=== PATIENT | male | born 1970 | race Caucasian/White ===

== ENCOUNTER 2019-11-21 03:37 | Inpatient (IN) | payer OTHER ==
[2019-11-21] MEDS ORDERED: Albuterol/Ipratropium 3.0-0.5 MG/3 ML Neb Soln NEB ONE (03:39)
--- NOTE | 2019-11-21 03:48 | EDM.PDOC ---
ED HPI GENERAL MEDICAL PROBLEM - General Chief Complaint: Respiratory Problem Stated Complaint: TROUBLE BREATHING Time Seen by Provider: 11/21/19 03:40 Source of Information: Reports: Patient - History of Present Illness INITIAL COMMENTS - FREE TEXT/NARRATIVE: The patient is a 49-year-old male smoker with a reported history of pneumonia and "something with his kidneys" who presents to the ER for shortness of breath. He is an extremely poor historian and only states he has been coughing and cannot breathe again cannot say much beyond that. Chest Pain Score (Numeric/FACES): 8 - Related Data Allergies Allergy/AdvReac Type Severity Reaction Status Date / Time No Known Allergies Allergy Verified 11/21/19 05:07 Home Meds: Home Meds . [No Known Home Meds] 11/21/19 [History] ED ROS GENERAL - Review of Systems Review Of Systems: See Below Reason Not Obtained: Very poor historian ED EXAM, GENERAL - Physical Exam Exam: See Below Free Text/Narrative:: Constitutional: Febrile, hypoxic, diaphoretic, ill-appearing in moderate respiratory distress, jaundiced appearance to the skin HEENT.: Normocephalic, Atraumatic, PERRL, EOMI, conjunctive a have a small amount of yellowing bilaterally, external ears are atraumatic, nares are patent without epistaxis Neck: Normal range of motion, Trachea Midline, No stridor Respiratory.: Moderate respiratory distress with some tachypnea, very poor aeration on the left with some crackles, no wheezes noted, decreased breath sounds but significantly improved in the right side Cardiovascular.: Tachycardic rate and Rhythm without murmurs, rubs, or gallops, good peripheral perfusion GI: Abdomen soft and non tender, no masses, no rebound, rigidity, or guarding Genital Urinary: Deferred Musculoskeletal: Good range of motion. All 4 extremities present and atraumatic , no edema Back: Full Range of Motion Skin: Warm, Dry, Color is jaundiced and diaphoretic, No acute rash. Lymphatic: No lymphadenopathy noted Neurological: Alert, Awake and oriented x 3, No focal deficits noted appreciate , GCS 15 Psych: Affect, Judgement, mood normal Course - Vital Signs Text/Narrative:: Clinically the patient appears to be a pneumonia. A stat portable chest x-ray was ordered and reviewed by me and it is consistent with a left lower lobe pneumonia. No pneumothorax, no thoracic masses or any other acute pathology noted. IV access was obtained in standard pneumonia pathway was instituted but given the patient's profound hypoxia and presentation he will need to be admitted to the hospital. He is responding to oxygen via nasal cannula and he will be given Levaquin 750 mg orally and cefepime 2 g IV. I contacted Dr. Gardiner, and she graciously accepts the patient for observation , reevaluation and treatment as appropriate. Critical care time less than 30 minutes. Last Recorded V/S: Last Vital Signs Temp 36 C L 11/21/19 21:00 Pulse 67 11/21/19 21:00 Resp 18 11/21/19 21:00 BP 112/71 11/21/19 21:00 Pulse Ox 99 11/21/19 21:00 - Orders/Labs/Meds Orders: Active Orders 24 hr Category Date Time Status Activity as Tolerated [RC] .Routine Care 11/21/19 05:12 Active Oxygen Therapy Adult [Oxygen Therapy] [RC] ASDIRECTED Care 11/21/19 05:24 Active RT Aerosol Therapy [RC] ASDIRECTED Care 11/21/19 03:39 Active Vital Signs [RC] Q4H Care 11/21/19 08:00 Active Regular Diet [DIET] Diet 11/21/19 Breakfast Active CULTURE BLOOD [BC] Stat Lab 11/21/19 04:00 Results CULTURE BLOOD [BC] Stat Lab 11/21/19 04:15 Results Cefepime [Maxipime in D5W 2 GM/50 ML] 2 gm Med 11/21/19 13:00 Active Premix Bag 1 bag IV Q8H Lactated Ringers [Ringers, Lactated] 1,000 ml Med 11/21/19 05:15 Active IV ASDIRECTED Levofloxacin/Dextrose 5%-Water [Levaquin in D5W 750 MG/ Med 11/22/19 04:00 Active 150 ML] 750 mg Premix Bag 1 bag IV Q24H Blood Culture x2 Reflex Set [OM.PC] Stat Oth 11/21/19 03:53 Ordered Medication Orders Acetaminophen (Tylenol) 650 mg PO Q4H PRN PRN Reason: Pain (Mild 1-3)/fever Albuterol/Ipratropium (Duoneb 3.0-0.5 Mg/3 Ml) 3 ml NEB Q4HRRT PRN PRN Reason: sob/wheezing Docusate Sodium (Colace) 100 mg PO BID PRN PRN Reason: Constipation Heparin Sodium (Porcine) (Heparin Sodium) 5,000 units SUBCUT Q8H [facility] Last Admin: 11/21/19 20:20 Dose: 5,000 units Admin: 11/21/19 13:37 Dose: 5,000 units Lactated Ringer's (Ringers, Lactated) 1,000 mls @ 125 mls/hr IV ASDIRECTED [facility] Last Admin: 11/21/19 17:34 Dose: 125 mls/hr Infusion: 11/21/19 15:42 Dose: 125 mls/hr Admin: 11/21/19 07:42 Dose: 125 mls/hr Cefepime HCl 2 gm/ Premix 50 mls @ 100 mls/hr IV Q8H [facility] Last Admin: 11/21/19 20:24 Dose: 100 mls/hr Infusion: 11/21/19 13:11 Dose: 100 mls/hr Admin: 11/21/19 12:41 Dose: 100 mls/hr Levofloxacin/Dextrose 750 mg/ (Premix) 150 mls @ 100 mls/hr IV Q24H [facility] Ketorolac Tromethamine (Toradol) 15 mg IVPUSH Q6H PRN PRN Reason: Pain Stop: 11/26/19 12:57 Last Admin: 11/21/19 13:37 Dose: 15 mg Magnesium Hydroxide (Milk Of Magnesia) 30 ml PO Q12H PRN PRN Reason: Constipation Ondansetron HCl (Zofran) 4 mg IVPUSH Q4H PRN PRN Reason: Nausea Sodium Phosphate (Neutra-Phos) 250 mg PO QID [facility] Last Admin: 11/21/19 17:34 Dose: 250 mg Admin: 11/21/19 12:42 Dose: 250 mg Labs: Laboratory Tests 11/21/19 11/21/19 11/21/19 Range/Units 04:00 04:00 04:00 WBC 30.17 H (4.0-11.0) K/uL RBC 4.16 L (4.50-5.90) M/uL Hgb 11.9 L (13.0-17.0) g/dL Hct 36.0 L (38.0-50.0) % MCV 86.5 (80.0-98.0) fL MCH 28.6 (27.0-32.0) pg MCHC 33.1 (31.0-37.0) g/dL RDW Std Deviation 45.2 (28.0-62.0) fl RDW Coeff of Carson 14 (11.0-15.0) % Plt Count 292 (150-400) K/uL MPV 11.20 (7.40-12.00) fL Add Manual Diff YES Neutrophils % (Manual) 88 H (48.0-80.0) % Band Neutrophils % 4 % Lymphocytes % (Manual) 1 L (16.0-40.0) % Monocytes % (Manual) 6 (0.0-15.0) % Metamyelocytes % 1 % Nucleated RBC % 0.0 /100WBC Absolute Seg Neuts 26.5 H (1.4-5.7) Band Neutrophils # 1.2 Lymphocytes # (Manual) 0.3 L (0.6-2.4) Monocytes # (Manual) 1.8 H (0.0-0.8) Absolute Metamyelocyte 0.3 Nucleated RBCs # 0 K/uL Lactate 2.5 H* (0.20-2.00) mmol/L Sodium 132 L (136-148) mmol/L Potassium 3.5 (3.5-5.1) mmol/L Chloride 95 L (98-107) mmol/L Carbon Dioxide 26.5 (21.0-32.0) mmol/L BUN 16 (7.0-18.0) mg/dL Creatinine 1.1 (0.8-1.3) mg/dL Est Cr Clr Drug Dosing TNP Estimated GFR (MDRD) > 60.0 ml/min Glucose 132 H (74-106) mg/dL Hemoglobin A1c (4.5-6.2) % Calcium 8.5 (8.5-10.1) mg/dL Phosphorus (2.6-4.7) mg/dL Magnesium (1.8-2.4) mg/dL Total Bilirubin 4.5 H (0.2-1.0) mg/dL AST 65 H (15-37) IU/L ALT 27 (14-63) IU/L Alkaline Phosphatase 127 H (46-116) U/L Creatine Kinase (26-308) U/L Total Protein 8.0 (6.4-8.2) g/dL Albumin 2.1 L (3.4-5.0) g/dL Globulin 5.9 H (2.6-4.0) g/dL Albumin/Globulin Ratio 0.4 L (0.9-1.6) TSH 3rd Generation (0.36-3.74) uIU/mL 11/21/19 11/21/19 11/21/19 Range/Units 04:00 04:00 04:00 WBC (4.0-11.0) K/uL RBC (4.50-5.90) M/uL Hgb (13.0-17.0) g/dL Hct (38.0-50.0) % MCV (80.0-98.0) fL MCH (27.0-32.0) pg MCHC (31.0-37.0) g/dL RDW Std Deviation (28.0-62.0) fl RDW Coeff of Carson (11.0-15.0) % Plt Count (150-400) K/uL MPV (7.40-12.00) fL Add Manual Diff Neutrophils % (Manual) (48.0-80.0) % Band Neutrophils % % Lymphocytes % (Manual) (16.0-40.0) % Monocytes % (Manual) (0.0-15.0) % Metamyelocytes % % Nucleated RBC % /100WBC Absolute Seg Neuts (1.4-5.7) Band Neutrophils # Lymphocytes # (Manual) (0.6-2.4) Monocytes # (Manual) (0.0-0.8) Absolute Metamyelocyte Nucleated RBCs # K/uL Lactate (0.20-2.00) mmol/L Sodium (136-148) mmol/L Potassium (3.5-5.1) mmol/L Chloride (98-107) mmol/L Carbon Dioxide (21.0-32.0) mmol/L BUN (7.0-18.0) mg/dL Creatinine (0.8-1.3) mg/dL Est Cr Clr Drug Dosing Estimated GFR (MDRD) ml/min Glucose (74-106) mg/dL Hemoglobin A1c 5.9 (4.5-6.2) % Calcium (8.5-10.1) mg/dL Phosphorus 2.4 L (2.6-4.7) mg/dL Magnesium 1.3 L (1.8-2.4) mg/dL Total Bilirubin (0.2-1.0) mg/dL AST (15-37) IU/L ALT (14-63) IU/L Alkaline Phosphatase (46-116) U/L Creatine Kinase (26-308) U/L Total Protein (6.4-8.2) g/dL Albumin (3.4-5.0) g/dL Globulin (2.6-4.0) g/dL Albumin/Globulin Ratio (0.9-1.6) TSH 3rd Generation 0.58 (0.36-3.74) uIU/mL 11/21/19 11/21/19 Range/Units 04:00 06:55 WBC (4.0-11.0) K/uL RBC (4.50-5.90) M/uL Hgb (13.0-17.0) g/dL Hct (38.0-50.0) % MCV (80.0-98.0) fL MCH (27.0-32.0) pg MCHC (31.0-37.0) g/dL RDW Std Deviation (28.0-62.0) fl RDW Coeff of Carson (11.0-15.0) % Plt Count (150-400) K/uL MPV (7.40-12.00) fL Add Manual Diff Neutrophils % (Manual) (48.0-80.0) % Band Neutrophils % % Lymphocytes % (Manual) (16.0-40.0) % Monocytes % (Manual) (0.0-15.0) % Metamyelocytes % % Nucleated RBC % /100WBC Absolute Seg Neuts (1.4-5.7) Band Neutrophils # Lymphocytes # (Manual) (0.6-2.4) Monocytes # (Manual) (0.0-0.8) Absolute Metamyelocyte Nucleated RBCs # K/uL Lactate 1.6 (0.20-2.00) mmol/L Sodium (136-148) mmol/L Potassium (3.5-5.1) mmol/L Chloride (98-107) mmol/L Carbon Dioxide (21.0-32.0) mmol/L BUN (7.0-18.0) mg/dL Creatinine (0.8-1.3) mg/dL Est Cr Clr Drug Dosing Estimated GFR (MDRD) ml/min Glucose (74-106) mg/dL Hemoglobin A1c (4.5-6.2) % Calcium (8.5-10.1) mg/dL Phosphorus (2.6-4.7) mg/dL Magnesium (1.8-2.4) mg/dL Total Bilirubin (0.2-1.0) mg/dL AST (15-37) IU/L ALT (14-63) IU/L Alkaline Phosphatase (46-116) U/L Creatine Kinase 310 H (26-308) U/L Total Protein (6.4-8.2) g/dL Albumin (3.4-5.0) g/dL Globulin (2.6-4.0) g/dL Albumin/Globulin Ratio (0.9-1.6) TSH 3rd Generation (0.36-3.74) uIU/mL Meds: Medications Generic Name Dose Route Start Last Admin Trade Name Freq PRN Reason Stop Dose Admin Acetaminophen 650 mg 11/21/19 08:11 Tylenol PO Q4H PRN Pain (Mild 1-3)/fever Albuterol/Ipratropium 3 ml 11/21/19 10:48 Duoneb 3.0-0.5 Mg/3 Ml NEB Q4HRRT PRN sob/wheezing Docusate Sodium 100 mg 11/21/19 08:11 Colace PO BID PRN Constipation Heparin Sodium (Porcine) 5,000 units 11/21/19 13:00 11/21/19 20:20 Heparin Sodium SUBCUT 5,000 units Q8H ANA MARÍA Administration Lactated Ringer's 1,000 mls @ 125 mls/hr 11/21/19 05:15 11/21/19 17:34 Ringers, Lactated IV 125 mls/hr ASDIRECTED ANA MARÍA Administration Cefepime HCl 2 gm/ Premix 50 mls @ 100 mls/hr 11/21/19 13:00 11/21/19 20:24 IV 100 mls/hr Q8H ANA MARÍA Administration Levofloxacin/Dextrose 750 mg/ 150 mls @ 100 mls/hr 11/22/19 04:00 Premix IV Q24H [facility] Ketorolac Tromethamine 15 mg 03/09/20 12:57 11/21/19 13:37 Toradol IVPUSH 11/26/19 12:57 15 mg Q6H PRN Administration Pain Magnesium Hydroxide 30 ml 11/21/19 08:11 Milk Of Magnesia PO Q12H PRN Constipation Ondansetron HCl 4 mg 11/21/19 08:11 Zofran IVPUSH Q4H PRN Nausea Sodium Phosphate 250 mg 11/21/19 12:00 11/21/19 17:34 Neutra-Phos PO 250 mg QID ANA MARÍA Administration Discontinued Medications Generic Name Dose Route Start Last Admin Trade Name Freq PRN Reason Stop Dose Admin Albuterol/Ipratropium 3 ml 11/21/19 03:39 11/21/19 04:34 Duoneb 3.0-0.5 Mg/3 Ml NEB 11/21/19 03:40 3 ml ONETIME ONE Administration Cefepime HCl 2 gm/ Premix 50 mls @ 100 mls/hr 11/21/19 04:20 11/21/19 04:34 IV 11/21/19 04:49 100 mls/hr ONETIME ONE Administration Sodium Chloride 1,000 mls @ 999 mls/hr 11/21/19 04:27 11/21/19 04:34 Normal Saline IV 11/21/19 05:27 999 mls/hr .Bolus ONE Administration Sodium Chloride 1,000 mls @ 999 mls/hr 11/21/19 05:05 11/21/19 05:23 Normal Saline IV 11/21/19 06:05 999 mls/hr .Bolus ONE Administration Sodium Chloride 1,000 mls @ 999 mls/hr 11/21/19 06:10 11/21/19 06:31 Normal Saline IV 11/21/19 07:10 999 mls/hr .Bolus ONE Administration Magnesium Sulfate 4 gm/ Premix 100 mls @ 50 mls/hr 11/21/19 08:25 11/21/19 08 :36 IV 11/21/19 10:24 50 mls/hr ONETIME ONE Administration Iopamidol 50 ml 11/21/19 11:44 11/21/19 11:44 Isovue Multipack-370 (76%) IVPUSH 11/21/19 11:45 50 ml ONETIME ONE Administration Levofloxacin 750 mg 11/21/19 04:20 11/21/19 04:34 Levaquin PO 11/21/19 04:21 750 mg ONETIME ONE Administration Morphine Sulfate 2 mg 11/21/19 09:40 11/21/19 09:51 Morphine IVPUSH 11/21/19 09:41 2 mg ONETIME ONE Administration Potassium Chloride 40 meq 11/21/19 12:52 11/21/19 13:36 Klor-Con M20 PO 11/21/19 12:53 40 meq ONETIME ONE Administration Departure - Departure Time of Disposition: 22:00 Disposition: Refer to Observation Condition: Fair Clinical Impression: CAP (community acquired pneumonia) - Discharge Information *PRESCRIPTION DRUG MONITORING PROGRAM REVIEWED*: Not Applicable *COPY OF PRESCRIPTION DRUG MONITORING REPORT IN PATIENT SHANNEN: Not Applicable Sepsis Event Note - Evaluation Sepsis Screening Result: Possible Sepsis Risk - Focused Exam Date Exam was Performed: 11/21/19 Time Exam was Performed: 22:50 - My Orders Last 24 Hours: My Active Orders 11/21/19 03:39 RT Aerosol Therapy [RC] ASDIRECTED 11/21/19 03:53 Blood Culture x2 Reflex Set [OM.PC] Stat 11/21/19 04:00 CULTURE BLOOD [BC] Stat 11/21/19 04:15 CULTURE BLOOD [BC] Stat - Assessment/Plan Last 24 Hours: My Active Orders 11/21/19 03:39 RT Aerosol Therapy [RC] ASDIRECTED 11/21/19 03:53 Blood Culture x2 Reflex Set [OM.PC] Stat 11/21/19 04:00 CULTURE BLOOD [BC] Stat 11/21/19 04:15 CULTURE BLOOD [BC] Stat
[2019-11-21] MEDS ORDERED: Cefepime 2 GM in Premix Bag 1 BAG IV ONE (04:20)
[2019-11-21] MEDS ORDERED: Levofloxacin 250 MG Tab PO ONE (04:20)
[2019-11-21] MEDS ORDERED: Sodium Chloride 0.9% 1,000 ML IV ONE ×3 (04:27→06:10)
--- NOTE | 2019-11-21 04:32 | CR ---
Indication: Shortness of breath Technique: Chest 1 view Comparison: None Findings/Impression: Normal cardiac size. Patchy opacity in the mid to lower left lung field likely represents infection. No pneumothorax or significant effusion. No acute osseous abnormality. Recommend follow-up chest radiograph to assure complete resolution of findings. Dictated by Amanda Rocha MD @ Nov 21 2019 4:29AM Signed by Dr. Amanda Rocha @ Nov 21 2019 4:30AM
[2019-11-21 04:43] LABS: BLOOD UREA NITROGEN,BUN 16 mg/dL (7.0-18.0); CARBON DIOXIDE,CO2 26.5 mmol/L (21.0-32.0); CHLORIDE,CL 95 mmol/L (98-107); GLUCOSE RANDOM 132 mg/dL (74-106); POTASSIUM,K 3.5 mmol/L (3.5-5.1); SODIUM,NA 132 mmol/L (136-148)
[2019-11-21 05:41] LABS: HEMOGLOBIN A1C 5.9 % (4.5-6.2)
[2019-11-21] MEDS: Lactated Ringers 1,000 ML IV SCH ×2 (07:42→17:34)
[2019-11-21] MEDS ORDERED: Docusate Sodium 100 MG Cap PO PRN (08:11)
[2019-11-21] MEDS ORDERED: Ondansetron 4 MG/2 ML SDV IVPUSH PRN (08:11)
[2019-11-21] MEDS ORDERED: Magnesium Hydroxide 400 MG/5 ML Susp 30 ML Cup PO PRN (08:11)
[2019-11-21] MEDS ORDERED: Acetaminophen 325 MG Tab PO PRN (08:11)
--- NOTE | 2019-11-21 08:11 | PCM.HP.2 ---
H&P History of Present Illness - General Date of Service: 11/21/19 Admit Problem/Dx: Admission Diagnosis/Problem Admission Diagnosis/Problem Respiratory failure with hypoxia Source of Information: Patient History Limitations: Reports: No Limitations - History of Present Illness Initial Comments - Free Text/Narative: This 49 year old male with pmh of recent PR per patient, Hep C, tobacco abuse, venous insufficiency PE and recurrent PNA presented to the ED early this morning with complaints of shortness of breath and overall not feeling well. he reports over 1 week ago he started feeling ill, with a productive cough, fevers , shortness of breath and generalized malaise. He reports he felt like it was just a viral illness so he waited to come in. He reports the over whelming weakness and shortness of breath brought him in. He reports brown, green and bloody sputum intermittently. Denies neck pain, sinus pressure or ear pain. No sore throat. No chest pain or palpitations. No abdominal pain, no diarrhea or constipation or black or bloody BMs. He denies urinary concerns and no focal neurological deficits. He reports 1 ppd smoking, no alcohol use and no current recreational drug use, but hx of IV drug use in the past. In the ED significant leukocytosis noted at 30,170, platelet 292. Lactic acid 2.5. Na 132, Cl 95, glucose 132, phos 2.4 Magnesium 1.3, Bilirubin 4.5 AST 65, ALT 27, alk phos 127. TSH 0.58. He wsa given 1 L NS and along with Cefepime and Levaquin. Lactic acid imrpved after fluid resuscitation. CXR showed LM to LL lobe opacity representing pneumonia. He was noted to be hypoxic on arrival to ED , sating mid 90s on 6 L NC. He will be admitted inpatient for acute hypoxic respiratory failure and severe community acquired pneumonia. Chest Pain Score (Numeric/FACES): 8 - Related Data Allergies/Adverse Reactions: Allergies Allergy/AdvReac Type Severity Reaction Status Date / Time No Known Allergies Allergy Verified 11/21/19 05:07 Home Medications: Home Meds . [No Known Home Meds] 11/21/19 [History] Past Medical History Cardiovascular History: Reports: Blood Clots/VTE/DVT, PR (recently he states in [place]. Denies current medications.), Other (See Below) (venous insufficiency). Denies: Afib, High Cholesterol, Hypertension, Stents Respiratory History: Reports: Pneumonia, Recurrent. Denies: Asthma, COPD Other Genitourinary History: unknown kidney disease Musculoskeletal History: Denies: Arthritis, Fracture Neurological History: Reports: None. Denies: CVA, TIA Psychiatric History: Reports: None Endocrine/Metabolic History: Reports: None. Denies: Diabetes, Type II, Obesity/ BMI 30+ - Infectious Disease History Infectious Disease History: Reports: Chicken Pox, Hepatitis C (reports not fully treated) - Past Surgical History Musculoskeletal Surgical History: Reports: Other (See Below) Other Musculoskeletal Surgeries/Procedures:: hand tendon surgery Social & Family History - Family History Cardiac: Reports: Blood Clots/VTE/DVT - Tobacco Use Smoking Status *Q: Current Every Day Smoker Years of Tobacco use: 40 Packs/Tins Daily: 1 - Caffeine Use Caffeine Use: Reports: Soda - Alcohol Use Alcohol Use History: No - Recreational Drug Use Recreational Drug Use: Yes Drug Use in Last 12 Months: Yes Recreational Drug Type: Reports: Heroin Recreational Drug Last Use: Pt stated he used heroin smoke before H&P Review of Systems - Review of Systems: Review Of Systems: See Below General: Reports: Fever, Chills, Malaise, Weakness, Fatigue, Decreased Appetite HEENT: Reports: Headaches. Denies: Sinus Congestion, Sore Throat, Visual Changes Pulmonary: Reports: Shortness of Breath, Cough, Sputum, Hemoptysis Cardiovascular: Reports: Dyspnea on Exertion. Denies: Chest Pain, Palpitations , Edema, Lightheadedness Gastrointestinal: Reports: Decreased Appetite. Denies: Abdominal Pain, Black Stool, Bloody Stool, Hematemesis, Nausea, Vomiting Genitourinary: Reports: No Symptoms. Denies: Dysuria, Frequency, Burning Musculoskeletal: Reports: Muscle Pain (all over). Denies: Neck Pain Psychiatric: Reports: No Symptoms. Denies: Confusion Neurological: Reports: No Symptoms. Denies: Confusion, Numbness, Paresthesia Hematologic/Lymphatic: Reports: No Symptoms Immunologic: Reports: No Symptoms Exam - Exam Exam: See Below - Vital Signs Vital Signs: Last Vital Signs Temp 99 F 11/21/19 07:42 Pulse 88 11/21/19 07:42 Resp 20 11/21/19 07:42 BP 93/54 L 11/21/19 07:42 Pulse Ox 95 11/21/19 07:42 Weight: 88.8 kg - Exam Quality Assessment: Supplemental Oxygen, DVT Prophylaxis General: Alert, Oriented, Cooperative, Other (appears acutely ill) HEENT: Conjunctiva Clear, Mucosa Moist & [place], Posterior Pharynx Clear Neck: Supple, Trachea Midline Lungs: Decreased Breath Sounds (L basilar) Cardiovascular: Regular Rate, Regular Rhythm, Normal S1, Normal S2 GI/Abdominal Exam: Normal Bowel Sounds, Soft, Non-Tender Back Exam: Normal Inspection, Full Range of Motion Extremities: Normal Inspection, Normal Range of Motion, Non-Tender, Pedal Edema (+1 non pitting) Skin: Other (z[place] color to bilateral lower legs from venous insufficiency) Neuro Extensive - Mental Status: Alert, Oriented x3 Neuro Extensive - Motor, Sensory, Reflexes: CN II-XII Intact Psychiatric: Alert, Normal Affect, Normal Mood - Patient Data Lab Results Last 24 hrs: Laboratory Results - last 24 hr 11/21/19 11/21/19 11/21/19 Range/Units 04:00 04:00 04:00 WBC 30.17 H (4.0-11.0) K/uL RBC 4.16 L (4.50-5.90) M/uL Hgb 11.9 L (13.0-17.0) g/dL Hct 36.0 L (38.0-50.0) % MCV 86.5 (80.0-98.0) fL MCH 28.6 (27.0-32.0) pg MCHC 33.1 (31.0-37.0) g/dL RDW Std Deviation 45.2 (28.0-62.0) fl RDW Coeff of [place] 14 (11.0-15.0) % Plt Count 292 (150-400) K/uL MPV 11.20 (7.40-12.00) fL Add Manual Diff YES Neutrophils % (Manual) 88 H (48.0-80.0) % Band Neutrophils % 4 % Lymphocytes % (Manual) 1 L (16.0-40.0) % Monocytes % (Manual) 6 (0.0-15.0) % Metamyelocytes % 1 % Nucleated RBC % 0.0 /100WBC Absolute Seg Neuts 26.5 H (1.4-5.7) Band Neutrophils # 1.2 Lymphocytes # (Manual) 0.3 L (0.6-2.4) Monocytes # (Manual) 1.8 H (0.0-0.8) Absolute Metamyelocyte 0.3 Nucleated RBCs # 0 K/uL Lactate 2.5 H* (0.20-2.00) mmol/L Sodium 132 L (136-148) mmol/L Potassium 3.5 (3.5-5.1) mmol/L Chloride 95 L (98-107) mmol/L Carbon Dioxide 26.5 (21.0-32.0) mmol/L BUN 16 (7.0-18.0) mg/dL Creatinine 1.1 (0.8-1.3) mg/dL Est Cr Clr Drug Dosing TNP Estimated GFR (MDRD) > 60.0 ml/min Glucose 132 H (74-106) mg/dL Hemoglobin A1c (4.5-6.2) % Calcium 8.5 (8.5-10.1) mg/dL Phosphorus (2.6-4.7) mg/dL Magnesium (1.8-2.4) mg/dL Total Bilirubin 4.5 H (0.2-1.0) mg/dL AST 65 H (15-37) IU/L ALT 27 (14-63) IU/L Alkaline Phosphatase 127 H (46-116) U/L Total Protein 8.0 (6.4-8.2) g/dL Albumin 2.1 L (3.4-5.0) g/dL Globulin 5.9 H (2.6-4.0) g/dL Albumin/Globulin Ratio 0.4 L (0.9-1.6) TSH 3rd Generation (0.36-3.74) uIU/mL 11/21/19 11/21/19 11/21/19 Range/Units 04:00 04:00 04:00 WBC (4.0-11.0) K/uL RBC (4.50-5.90) M/uL Hgb (13.0-17.0) g/dL Hct (38.0-50.0) % MCV (80.0-98.0) fL MCH (27.0-32.0) pg MCHC (31.0-37.0) g/dL RDW Std Deviation (28.0-62.0) fl RDW Coeff of [place] (11.0-15.0) % Plt Count (150-400) K/uL MPV (7.40-12.00) fL Add Manual Diff Neutrophils % (Manual) (48.0-80.0) % Band Neutrophils % % Lymphocytes % (Manual) (16.0-40.0) % Monocytes % (Manual) (0.0-15.0) % Metamyelocytes % % Nucleated RBC % /100WBC Absolute Seg Neuts (1.4-5.7) Band Neutrophils # Lymphocytes # (Manual) (0.6-2.4) Monocytes # (Manual) (0.0-0.8) Absolute Metamyelocyte Nucleated RBCs # K/uL Lactate (0.20-2.00) mmol/L Sodium (136-148) mmol/L Potassium (3.5-5.1) mmol/L Chloride (98-107) mmol/L Carbon Dioxide (21.0-32.0) mmol/L BUN (7.0-18.0) mg/dL Creatinine (0.8-1.3) mg/dL Est Cr Clr Drug Dosing Estimated GFR (MDRD) ml/min Glucose (74-106) mg/dL Hemoglobin A1c 5.9 (4.5-6.2) % Calcium (8.5-10.1) mg/dL Phosphorus 2.4 L (2.6-4.7) mg/dL Magnesium 1.3 L (1.8-2.4) mg/dL Total Bilirubin (0.2-1.0) mg/dL AST (15-37) IU/L ALT (14-63) IU/L Alkaline Phosphatase (46-116) U/L Total Protein (6.4-8.2) g/dL Albumin (3.4-5.0) g/dL Globulin (2.6-4.0) g/dL Albumin/Globulin Ratio (0.9-1.6) TSH 3rd Generation 0.58 (0.36-3.74) uIU/mL 11/21/19 Range/Units 06:55 WBC (4.0-11.0) K/uL RBC (4.50-5.90) M/uL Hgb (13.0-17.0) g/dL Hct (38.0-50.0) % MCV (80.0-98.0) fL MCH (27.0-32.0) pg MCHC (31.0-37.0) g/dL RDW Std Deviation (28.0-62.0) fl RDW Coeff of [place] (11.0-15.0) % Plt Count (150-400) K/uL MPV (7.40-12.00) fL Add Manual Diff Neutrophils % (Manual) (48.0-80.0) % Band Neutrophils % % Lymphocytes % (Manual) (16.0-40.0) % Monocytes % (Manual) (0.0-15.0) % Metamyelocytes % % Nucleated RBC % /100WBC Absolute Seg Neuts (1.4-5.7) Band Neutrophils # Lymphocytes # (Manual) (0.6-2.4) Monocytes # (Manual) (0.0-0.8) Absolute Metamyelocyte Nucleated RBCs # K/uL Lactate 1.6 (0.20-2.00) mmol/L Sodium (136-148) mmol/L Potassium (3.5-5.1) mmol/L Chloride (98-107) mmol/L Carbon Dioxide (21.0-32.0) mmol/L BUN (7.0-18.0) mg/dL Creatinine (0.8-1.3) mg/dL Est Cr Clr Drug Dosing Estimated GFR (MDRD) ml/min Glucose (74-106) mg/dL Hemoglobin A1c (4.5-6.2) % Calcium (8.5-10.1) mg/dL Phosphorus (2.6-4.7) mg/dL Magnesium (1.8-2.4) mg/dL Total Bilirubin (0.2-1.0) mg/dL AST (15-37) IU/L ALT (14-63) IU/L Alkaline Phosphatase (46-116) U/L Total Protein (6.4-8.2) g/dL Albumin (3.4-5.0) g/dL Globulin (2.6-4.0) g/dL Albumin/Globulin Ratio (0.9-1.6) TSH 3rd Generation (0.36-3.74) uIU/mL Result Diagrams: 11/21/19 04:00 11/21/19 04:00 Eder Results Last 24 hrs: Microbiology 11/21/19 04:15 Anaerobic Blood Culture - Final Blood - Venous - Lab Draw 11/21/19 04:00 Anaerobic Blood Culture - Final Blood - Venous Sepsis Event Note - Evaluation Sepsis Screening Result: No Definite Risk Current Stage of Sepsis: Sepsis Possible Source of Sepsis: Pulmonary - Focused Exam Sepsis Event Note Statement: Focused Sepsis Exam Completed Vital Signs: Vital Signs Temp Temp Pulse Resp BP Pulse Ox Pulse Ox 11/21/19 07:42 99 F 88 20 93/54 L 95 11/21/19 05:24 95 11/21/19 05:00 98.3 F 97 22 H 96/59 L 95 11/21/19 04:41 99 18 104/62 95 11/21/19 03:39 100.5 F 97.4 F 117 H 24 H 130/68 83 L Date Exam was Performed: 11/21/19 Time Exam was Performed: 08:53 - Problem List (1) Sepsis SNOMED Code(s): 25756865 ICD Code: A41.9 - SEPSIS, UNSPECIFIED ORGANISM Status: Acute Current Visit: Yes Qualifiers: Sepsis type: sepsis due to unspecified organism Severe sepsis acute organ dysfunction type: acute respiratory failure Acute respiratory failure type: with hypoxia Severe sepsis shock status: without septic shock (2) Acute respiratory failure with hypoxia SNOMED Code(s): 20930131, 710062057 ICD Code: J96.01 - ACUTE RESPIRATORY FAILURE WITH HYPOXIA Status: Acute Current Visit: Yes (3) Community acquired bacterial pneumonia SNOMED Code(s): 231802342, 766729803 ICD Code: J15.9 - UNSPECIFIED BACTERIAL PNEUMONIA Status: Acute Current Visit: Yes (4) Hepatitis C SNOMED Code(s): 16935495 ICD Code: B19.20 - UNSPECIFIED VIRAL HEPATITIS C WITHOUT HEPATIC COMA Status: Chronic Current Visit: Yes Qualifiers: Viral hepatitis chronicity: chronic Hepatic coma status: without hepatic coma Qualified Code(s): B18.2 - Chronic viral hepatitis C (5) Hx of substance abuse SNOMED Code(s): 787665906 ICD Code: F19.11 - OTHER PSYCHOACTIVE SUBSTANCE ABUSE, IN REMISSION Status : Chronic Current Visit: Yes (6) Hx of myocardial infarction SNOMED Code(s): 264967485 ICD Code: I25.2 - OLD MYOCARDIAL INFARCTION Status: Chronic Current Visit : Yes (7) Hx pulmonary embolism SNOMED Code(s): 746707275 ICD Code: Z86.711 - PERSONAL HISTORY OF PULMONARY EMBOLISM Status: Chronic Current Visit: Yes (8) Tobacco abuse SNOMED Code(s): 252716729 ICD Code: Z72.0 - TOBACCO USE Status: Chronic Current Visit: Yes (9) Venous insufficiency SNOMED Code(s): 85981017 ICD Code: I87.2 - VENOUS INSUFFICIENCY (CHRONIC) (PERIPHERAL) Status: Chronic Current Visit: Yes Problem List Initiated/Reviewed/Updated: Yes Orders Last 24hrs: Active Orders 24 hr Category Date Time Status Patient Status [ADT] Stat ADT 11/21/19 08:09 Ordered Activity as Tolerated [RC] .Routine Care 11/21/19 05:12 Active Oxygen Therapy Adult [Oxygen Therapy] [RC] ASDIRECTED Care 11/21/19 05:24 Active RT Aerosol Therapy [RC] ASDIRECTED Care 11/21/19 03:39 Active Vital Signs [RC] Q4H Care 11/21/19 08:00 Active Regular Diet [DIET] Diet 11/21/19 Breakfast Active CULTURE BLOOD [BC] Stat Lab 11/21/19 04:00 Results CULTURE BLOOD [BC] Stat Lab 11/21/19 04:15 Results Cefepime [Maxipime in D5W 2 GM/50 ML] 2 gm Med 11/21/19 13:00 Active Premix Bag 1 bag IV Q8H Lactated Ringers [Ringers, Lactated] 1,000 ml Med 11/21/19 05:15 Active IV ASDIRECTED Levofloxacin/Dextrose 5%-Water [Levaquin in D5W 750 MG/ Med 11/22/19 04:00 Active 150 ML] 750 mg Premix Bag 1 bag IV Q24H Blood Culture x2 Reflex Set [OM.PC] Stat Oth 11/21/19 03:53 Ordered Medication Orders Lactated Ringer's (Ringers, Lactated) 1,000 mls @ 125 mls/hr IV ASDIRECTED ANA MARÍA Last Admin: 11/21/19 07:42 Dose: 125 mls/hr Cefepime HCl 2 gm/ Premix 50 mls @ 100 mls/hr IV Q8H ANA MARÍA Levofloxacin/Dextrose 750 mg/ (Premix) 150 mls @ 100 mls/hr IV Q24H ANA MARÍA Assessment/Plan Comment:: This 49 year old male admitted with sepsis, acute hypoxic respiratory failure and severe CAP 1. Sepsis - Elevated lactic acid, normalized with 3 L IVF fluid resuscitation. - Continue to monitor BP. HR stable. Afebrile currently. - BC pending - Obtain sputum 2. Acute hypoxic Respiratory failure - requiring 6 L NC currently, wean as possible - Luigibs PRN - encourage IS, CDB 3. Severe CAP - Continue with Levaquin and Cefepime at this time. - Obtain sputum culture - Oxygen therapy as needed to keep sats above 92. - Due to hx of PE and current hx of intermittent hemopytsis, will obtain CT angio of chest to rule out PE and further evaluate pneumonia - Obtain influenza swab - Check CPK 4. Hyperbilirubinemia - Hx hep C, which was not fully treated per patient reports - Will obtain Hepatitis panel - Obtain RUQ US as well. - No alcohol use. - Consider elevation from sepsis as well. - Monitor 5. Electrolyte abnormalities: Hypomagnesemia, hypophosphatemia, hypokalemia - Replace with 4 gm IV Mag - replace with Phos PO - replace PO KCL this morning as well 6. Hx PR, venous insufficiency - Obtain records from [facility]. Reports he is currently not of any medications, Denies hx CHF. Diet: Regular VTE prophylaxis: heparin CODE Status: Full Code Disposition: Will make inpatient, will likely need greater than 2 midnights stay - Mortality Measure Prognosis:: Good
[2019-11-21] MEDS ORDERED: Magnesium Sulfate/Water 4 GM in Premix Bag 1 BAG IV ONE (08:25)
[2019-11-21] MEDS ORDERED: Morphine 2 MG/ML Syringe IVPUSH ONE (09:40)
[2019-11-21] MEDS ORDERED: Albuterol/Ipratropium 3.0-0.5 MG/3 ML Neb Soln NEB PRN (10:48)
[2019-11-21] MEDS ORDERED: Iopamidol 755 MG/ML 200 ML Multipack Bottle IVPUSH ONE (11:44)
--- NOTE | 2019-11-21 12:03 | CT ---
CT chest Technique: Multiple axial sections through the chest were obtained. Intravenous contrast was utilized. Study performed as a pulmonary angiogram protocol. Comparison: No previous chest imaging is available. Findings: Pulmonary arteries are moderately well opacified. No filling defects are seen to indicate pulmonary embolism. Consolidation is seen within the left lower lung. Mediastinum and hilar regions show small lymph nodes which are felt to be within normal limits. No axillary adenopathy is seen. Right lung is clear. Bone window settings were reviewed which show slight degenerative change throughout the thoracic spine. No acute osseous finding is seen. Impression: 1. No findings of pulmonary embolism. 2. Left lower lung consolidation. This most likely represents pneumonia but difficult to exclude other etiologies. Follow-up recommended after clinical therapy. 3. Other findings which are believed to be incidental. Diagnostic code #3 This report was dictated in [place] Standard Time
[2019-11-21] MEDS: Cefepime 2 GM in Premix Bag 1 BAG IV SCH ×2 (12:41→20:24)
[2019-11-21] MEDS: Phosphorus #1 250 MG Tab PO SCH ×3 (12:42→23:57)
[2019-11-21] MEDS ORDERED: Potassium Chloride 20 MEQ Tab.ER PO ONE (12:52)
[2019-11-21] MEDS ORDERED: Ketorolac 15 MG/ML SDV IVPUSH PRN (12:57)
--- NOTE | 2019-11-21 13:20 | US ---
Limited abdominal ultrasound: Multiple real-time images of the upper right abdomen were obtained. Comparison: No prior abdominal imaging. Liver is generous in size. Liver is echogenic in relation to the right kidney compatible with fatty infiltration. No focal abnormality is appreciated within the liver. Visualized portions of the pancreas are unremarkable. Gallbladder contains no shadowing gallstones. No gallbladder wall thickening or biliary duct dilatation is seen. Right kidney shows no hydronephrosis or mass and has a length of 13.3 cm Impression: 1. Generous size liver with fatty infiltration. 2. No additional abnormality is identified on right upper quadrant abdominal ultrasound. Diagnostic code #2 This report was dictated in [place] Standard Time
[2019-11-21] MEDS: Heparin Sodium 5,000 Units/ML Vial SUBCUT SCH ×2 (13:37→20:20)
[2019-11-22] MEDS: Lactated Ringers 1,000 ML IV SCH (02:40)
[2019-11-22] MEDS ORDERED: Levofloxacin/Dextrose 5%-Water 750 MG in Premix Bag 1 BAG IV SCH (04:00)
[2019-11-22] MEDS: Phosphorus #1 250 MG Tab PO SCH ×3 (05:20→18:29)
[2019-11-22] MEDS: Heparin Sodium 5,000 Units/ML Vial SUBCUT SCH ×3 (05:20→21:59)
[2019-11-22] MEDS: Cefepime 2 GM in Premix Bag 1 BAG IV SCH (05:24)
[2019-11-22 06:22] LABS: BLOOD UREA NITROGEN,BUN 19 mg/dL (7.0-18.0); CARBON DIOXIDE,CO2 29.8 mmol/L (21.0-32.0); CHLORIDE,CL 100 mmol/L (98-107); GLUCOSE RANDOM 110 mg/dL (74-106); POTASSIUM,K 3.6 mmol/L (3.5-5.1); SODIUM,NA 138 mmol/L (136-148)
--- NOTE | 2019-11-22 08:58 | PCM.PN ---
- General Info Date of Service: 11/22/19 Admission Dx/Problem (Free Text): Admission Diagnosis/Problem Admission Diagnosis/Problem Respiratory failure with hypoxia Subjective Update: Reports feeling improved today. Shortness of breath and pleuritic pain are significantly better. No chest pain. Sputum has lessened as well. No other pain. Reports feeling diaphoretic and cool all night. Would like to shower. Functional Status: Reports: Pain Controlled, Tolerating Diet, Ambulating - Review of Systems General: Reports: Fatigue, Malaise, Chills. Denies: Fever HEENT: Reports: No Symptoms. Denies: Headaches, Sinus Congestion, Visual Changes Pulmonary: Reports: No Symptoms, Cough Cardiovascular: Reports: No Symptoms. Denies: Chest Pain, Palpitations, Lightheadedness Gastrointestinal: Reports: Constipation. Denies: Abdominal Pain, Nausea, Vomiting Genitourinary: Reports: No Symptoms. Denies: Dysuria, Frequency Musculoskeletal: Reports: No Symptoms. Denies: Neck Pain Skin: Reports: Diaphoresis Neurological: Reports: No Symptoms Psychiatric: Reports: No Symptoms - Patient Data Vitals - Most Recent: Last Vital Signs Temp 95.3 F L 11/22/19 07:20 Pulse 67 11/22/19 07:20 Resp 14 11/22/19 07:20 BP 107/76 11/22/19 07:20 Pulse Ox 96 11/22/19 07:20 Weight - Most Recent: 88.8 kg I&O - Last 24 Hours: Intake & Output 11/21/19 11/22/19 11/22/19 22:59 06:59 14:59 Intake Total 1620 1763 Output Total 240 400 Balance 1380 1363 Lab Results Last 24 Hours: Laboratory Results - last 24 hr 11/22/19 11/22/19 11/22/19 Range/Units 00:05 00:05 05:55 WBC 8.60 (4.0-11.0) K/uL RBC 4.24 L (4.50-5.90) M/uL Hgb 12.0 L (13.0-17.0) g/dL Hct 37.2 L (38.0-50.0) % MCV 87.7 (80.0-98.0) fL MCH 28.3 (27.0-32.0) pg MCHC 32.3 (31.0-37.0) g/dL RDW Std Deviation 47.5 (28.0-62.0) fl RDW Coeff of Carson 15 (11.0-15.0) % Plt Count 233 (150-400) K/uL MPV 10.80 (7.40-12.00) fL Neut % (Auto) 80.7 H (48.0-80.0) % Lymph % (Auto) 10.2 L (16.0-40.0) % Beckham % (Auto) 8.7 (0.0-15.0) % Eos % (Auto) 0.2 (0.0-7.0) % Baso % (Auto) 0.2 (0.0-1.5) % Neut # (Auto) 6.9 H (1.4-5.7) K/uL Lymph # (Auto) 0.9 (0.6-2.4) K/uL Beckham # (Auto) 0.8 (0.0-0.8) K/uL Eos # (Auto) 0.0 (0.0-0.7) K/uL Baso # (Auto) 0.0 (0.0-0.1) K/uL Nucleated RBC % 0.0 /100WBC Nucleated RBCs # 0 K/uL Sodium (136-148) mmol/L Potassium (3.5-5.1) mmol/L Chloride (98-107) mmol/L Carbon Dioxide (21.0-32.0) mmol/L BUN (7.0-18.0) mg/dL Creatinine (0.8-1.3) mg/dL Est Cr Clr Drug Dosing mL/min Estimated GFR (MDRD) ml/min Glucose (74-106) mg/dL Calcium (8.5-10.1) mg/dL Magnesium (1.8-2.4) mg/dL Total Bilirubin (0.2-1.0) mg/dL AST (15-37) IU/L ALT (14-63) IU/L Alkaline Phosphatase (46-116) U/L Total Protein (6.4-8.2) g/dL Albumin (3.4-5.0) g/dL Globulin (2.6-4.0) g/dL Albumin/Globulin Ratio (0.9-1.6) Urine Color DARK YELLOW Urine Appearance CLEAR Urine pH 6.0 (5.0-8.0) Ur Specific [place] 1.025 (1.001-1.035) Urine Protein TRACE H (NEGATIVE) mg/dL Urine Glucose (UA) NEGATIVE (NEGATIVE) mg/dL Urine Ketones NEGATIVE (NEGATIVE) mg/dL Urine Occult Blood MODERATE H (NEGATIVE) Urine Nitrite NEGATIVE (NEGATIVE) Urine Bilirubin MODERATE H (NEGATIVE) Urine Ictotest POSITIVE Urine Urobilinogen 4.0 H (<2.0) EU/dL Ur Leukocyte Esterase NEGATIVE (NEGATIVE) Urine RBC 0-1 (0-2/HPF) Urine WBC 0-1 (0-5/HPF) Ur Epithelial Cells RARE (NONE-FEW) Urine Bacteria 1+ H (NEGATIVE) Urine Mucus FEW (NONE-MOD) Urine Opiates Screen POSITIVE (NEGATIVE) Ur Oxycodone Screen POSITIVE (NEGATIVE) Urine Methadone Screen POSITIVE (NEGATIVE) Ur Barbiturates Screen NEGATIVE (NEGATIVE) Ur Phencyclidine Scrn NEGATIVE (NEGATIVE) Ur Amphetamine Screen NEGATIVE (NEGATIVE) U Methamphetamines Scrn POSITIVE (NEGATIVE) U Benzodiazepines Scrn NEGATIVE (NEGATIVE) U Cocaine Metab Screen NEGATIVE (NEGATIVE) U Marijuana (THC) Screen NEGATIVE (NEGATIVE) 11/22/19 Range/Units 05:55 WBC (4.0-11.0) K/uL RBC (4.50-5.90) M/uL Hgb (13.0-17.0) g/dL Hct (38.0-50.0) % MCV (80.0-98.0) fL MCH (27.0-32.0) pg MCHC (31.0-37.0) g/dL RDW Std Deviation (28.0-62.0) fl RDW Coeff of Carson (11.0-15.0) % Plt Count (150-400) K/uL MPV (7.40-12.00) fL Neut % (Auto) (48.0-80.0) % Lymph % (Auto) (16.0-40.0) % Beckham % (Auto) (0.0-15.0) % Eos % (Auto) (0.0-7.0) % Baso % (Auto) (0.0-1.5) % Neut # (Auto) (1.4-5.7) K/uL Lymph # (Auto) (0.6-2.4) K/uL Beckham # (Auto) (0.0-0.8) K/uL Eos # (Auto) (0.0-0.7) K/uL Baso # (Auto) (0.0-0.1) K/uL Nucleated RBC % /100WBC Nucleated RBCs # K/uL Sodium 138 (136-148) mmol/L Potassium 3.6 (3.5-5.1) mmol/L Chloride 100 (98-107) mmol/L Carbon Dioxide 29.8 (21.0-32.0) mmol/L BUN 19 H (7.0-18.0) mg/dL Creatinine 0.7 L (0.8-1.3) mg/dL Est Cr Clr Drug Dosing 132.97 mL/min Estimated GFR (MDRD) > 60.0 ml/min Glucose 110 H (74-106) mg/dL Calcium 8.3 L (8.5-10.1) mg/dL Magnesium 1.7 L (1.8-2.4) mg/dL Total Bilirubin 1.6 H (0.2-1.0) mg/dL AST 48 H (15-37) IU/L ALT 26 (14-63) IU/L Alkaline Phosphatase 96 (46-116) U/L Total Protein 6.9 (6.4-8.2) g/dL Albumin 1.6 L (3.4-5.0) g/dL Globulin 5.3 H (2.6-4.0) g/dL Albumin/Globulin Ratio 0.3 L (0.9-1.6) Urine Color Urine Appearance Urine pH (5.0-8.0) Ur Specific Len[place] (1.001-1.035) Urine Protein (NEGATIVE) mg/dL Urine Glucose (UA) (NEGATIVE) mg/dL Urine Ketones (NEGATIVE) mg/dL Urine Occult Blood (NEGATIVE) Urine Nitrite (NEGATIVE) Urine Bilirubin (NEGATIVE) Urine Ictotest Urine Urobilinogen (<2.0) EU/dL Ur Leukocyte Esterase (NEGATIVE) Urine RBC (0-2/HPF) Urine WBC (0-5/HPF) Ur Epithelial Cells (NONE-FEW) Urine Bacteria (NEGATIVE) Urine Mucus (NONE-MOD) Urine Opiates Screen (NEGATIVE) Ur Oxycodone Screen (NEGATIVE) Urine Methadone Screen (NEGATIVE) Ur Barbiturates Screen (NEGATIVE) Ur Phencyclidine Scrn (NEGATIVE) Ur Amphetamine Screen (NEGATIVE) U Methamphetamines Scrn (NEGATIVE) U Benzodiazepines Scrn (NEGATIVE) U Cocaine Metab Screen (NEGATIVE) U Marijuana (THC) Screen (NEGATIVE) Eder Results Last 24 Hours: Microbiology 11/21/19 04:15 Aerobic Blood Culture - Preliminary Blood - Venous - Lab Draw NO GROWTH AFTER 1 DAY Anaerobic Blood Culture - Final 11/21/19 04:00 Aerobic Blood Culture - Preliminary Blood - Venous NO GROWTH AFTER 1 DAY Anaerobic Blood Culture - Final 11/21/19 10:00 Gram Stain - Preliminary Sputum - Expectorated 11/21/19 08:45 Influenza Type A Antigen Screen - Final Nasopharyngeal Swab NEGATIVE INFLUENZA A VIRUS AG REFERENCE RANGE: NEGATIVE Influenza Type B Antigen Screen - Final NEGATIVE INFLUENZA B VIRUS AG REFERENCE RANGE: NEGATIVE Med Orders - Current: Current Medications Acetaminophen (Tylenol) 650 mg PO Q4H PRN PRN Reason: Pain (Mild 1-3)/fever Albuterol/Ipratropium (Duoneb 3.0-0.5 Mg/3 Ml) 3 ml NEB Q4HRRT PRN PRN Reason: sob/wheezing Docusate Sodium (Colace) 100 mg PO BID PRN PRN Reason: Constipation Heparin Sodium (Porcine) (Heparin Sodium) 5,000 units SUBCUT Q8H [facility] Last Admin: 11/22/19 05:20 Dose: 5,000 units Lactated Ringer's (Ringers, Lactated) 1,000 mls @ 125 mls/hr IV ASDIRECTED [facility] Last Admin: 11/22/19 02:40 Dose: 125 mls/hr Cefepime HCl 2 gm/ Premix 50 mls @ 100 mls/hr IV Q8H [facility] Last Admin: 11/22/19 05:24 Dose: 100 mls/hr Levofloxacin/Dextrose 750 mg/ (Premix) 150 mls @ 100 mls/hr IV Q24H [facility] Last Admin: 11/22/19 03:26 Dose: 100 mls/hr Ketorolac Tromethamine (Toradol) 15 mg IVPUSH Q6H PRN PRN Reason: Pain Stop: 11/26/19 12:57 Last Admin: 11/21/19 13:37 Dose: 15 mg Magnesium Hydroxide (Milk Of Magnesia) 30 ml PO Q12H PRN PRN Reason: Constipation Ondansetron HCl (Zofran) 4 mg IVPUSH Q4H PRN PRN Reason: Nausea Sodium Phosphate (Neutra-Phos) 250 mg PO QID [facility]NA [facility]ÍA Last Admin: 11/22/19 05:20 Dose: 250 mg Discontinued Medications Albuterol/Ipratropium (Duoneb 3.0-0.5 Mg/3 Ml) 3 ml NEB ONETIME ONE Stop: 11/21/19 03:40 Last Admin: 11/21/19 04:34 Dose: 3 ml Cefepime HCl 2 gm/ Premix 50 mls @ 100 mls/hr IV ONETIME ONE Stop: 11/21/19 04:49 Last Admin: 11/21/19 04:34 Dose: 100 mls/hr Sodium Chloride (Normal Saline) 1,000 mls @ 999 mls/hr IV .Bolus ONE Stop: 11/21/19 05:27 Last Admin: 11/21/19 04:34 Dose: 999 mls/hr Sodium Chloride (Normal Saline) 1,000 mls @ 999 mls/hr IV .Bolus ONE Stop: 11/21/19 06:05 Last Admin: 11/21/19 05:23 Dose: 999 mls/hr Sodium Chloride (Normal Saline) 1,000 mls @ 999 mls/hr IV .Bolus ONE Stop: 11/21/19 07:10 Last Admin: 11/21/19 06:31 Dose: 999 mls/hr Magnesium Sulfate 4 gm/ Premix 100 mls @ 50 mls/hr IV ONETIME ONE Stop: 11/21/19 10:24 Last Admin: 11/21/19 08:36 Dose: 50 mls/hr Iopamidol (Isovue Multipack-370 (76%)) 50 ml IVPUSH ONETIME ONE Stop: 11/21/19 11:45 Last Admin: 11/21/19 11:44 Dose: 50 ml Levofloxacin (Levaquin) 750 mg PO ONETIME ONE Stop: 11/21/19 04:21 Last Admin: 11/21/19 04:34 Dose: 750 mg Morphine Sulfate (Morphine) 2 mg IVPUSH ONETIME ONE Stop: 11/21/19 09:41 Last Admin: 11/21/19 09:51 Dose: 2 mg Potassium Chloride (Klor-Con M20) 40 meq PO ONETIME ONE Stop: 11/21/19 12:53 Last Admin: 11/21/19 13:36 Dose: 40 meq - Exam Quality Assessment: Supplemental Oxygen General: Alert, Oriented, Cooperative, No Acute Distress, Other (diaphoretic) Neck: Supple Lungs: Crackles (left lower base), Rhonchi (left lower base) GI/Abdominal Exam: Normal Bowel Sounds, Soft, Non-Tender Back Exam: Normal Inspection, Full Range of Motion Extremities: Normal Inspection, Normal Range of Motion, Non-Tender, Pedal Edema (+1 non pitting) Skin: Warm, Dry, Other (bilateral lower extremities have zuhair, venous stasis changes to skin.) Neurological: No New Focal Deficit Psy/Mental Status: Alert, Normal Affect, Normal Mood Sepsis Event Note - Evaluation Sepsis Screening Result: No Definite Risk - Focused Exam Vital Signs: Vital Signs Temp Pulse Resp BP Pulse Ox 11/22/19 07:20 95.3 F L 67 14 107/76 96 11/22/19 04:00 97.5 F 82 18 125/75 97 11/22/19 01:00 97.7 F 96 18 116/72 98 11/21/19 21:00 96.8 F L 67 18 112/71 99 Date Exam was Performed: 11/22/19 Time Exam was Performed: 10:30 - Problem List & Annotations (1) Sepsis SNOMED Code(s): 55066903 Code(s): A41.9 - SEPSIS, UNSPECIFIED ORGANISM Status: Acute Current Visit : Yes Qualifiers: Sepsis type: sepsis due to unspecified organism Severe sepsis acute organ dysfunction type: acute respiratory failure Acute respiratory failure type: with hypoxia Severe sepsis shock status: without septic shock (2) Acute respiratory failure with hypoxia SNOMED Code(s): 36440262, 079117698 Code(s): J96.01 - ACUTE RESPIRATORY FAILURE WITH HYPOXIA Status: Acute Current Visit: Yes (3) Community acquired bacterial pneumonia SNOMED Code(s): 400293811, 934812465 Code(s): J15.9 - UNSPECIFIED BACTERIAL PNEUMONIA Status: Acute Current Visit: Yes (4) Hepatitis C SNOMED Code(s): 45444049 Code(s): B19.20 - UNSPECIFIED VIRAL HEPATITIS C WITHOUT HEPATIC COMA Status : Chronic Current Visit: Yes Qualifiers: Viral hepatitis chronicity: chronic Hepatic coma status: without hepatic coma Qualified Code(s): B18.2 - Chronic viral hepatitis C (5) Hx of substance abuse SNOMED Code(s): 577041145 Code(s): F19.11 - OTHER PSYCHOACTIVE SUBSTANCE ABUSE, IN REMISSION Status: Chronic Current Visit: Yes (6) Hx of myocardial infarction SNOMED Code(s): 144403523 Code(s): I25.2 - OLD MYOCARDIAL INFARCTION Status: Chronic Current Visit : Yes (7) Hx pulmonary embolism SNOMED Code(s): 611150441 Code(s): Z86.711 - PERSONAL HISTORY OF PULMONARY EMBOLISM Status: Chronic Current Visit: Yes (8) Tobacco abuse SNOMED Code(s): 569613830 Code(s): Z72.0 - TOBACCO USE Status: Chronic Current Visit: Yes (9) Venous insufficiency SNOMED Code(s): 51650502 Code(s): I87.2 - VENOUS INSUFFICIENCY (CHRONIC) (PERIPHERAL) Status: Chronic Current Visit: Yes - Problem List Review Problem List Initiated/Reviewed/Updated: Yes - My Orders Last 24 Hours: My Active Orders 11/21/19 08:09 Patient Status [ADT] Stat 11/21/19 08:11 Up With Assistance [RC] ASDIRECTED VTE/DVT Education [RC] PER UNIT ROUTINE Acetaminophen [Tylenol] 650 mg PO Q4H PRN Docusate Sodium [Colace] 100 mg PO BID PRN Magnesium Hydroxide [Milk of Magnesia] 30 ml PO Q12H PRN Ondansetron [Zofran] 4 mg IVPUSH Q4H PRN Resuscitation Status Routine 11/21/19 08:12 Intake and Output [RC] Q12H 11/21/19 08:24 Obtain Past Medical Record [OM.PC] Urgent 11/21/19 08:55 HEPATITIS PANEL (4) [REF] Routine 11/21/19 10:00 CULTURE SPUTUM + SMEAR [RM] Stat 11/21/19 10:07 Echo Comp wo Cont [US] Routine 11/21/19 10:48 RT Aerosol Therapy [RC] ASDIRECTED Albuterol/Ipratropium [DuoNeb 3.0-0.5 MG/3 ML] 3 ml NEB Q4HRRT PRN 11/21/19 12:00 Phosphorus #1 [Neutra-Phos] 250 mg PO QID 11/21/19 12:57 Ketorolac [Toradol] 15 mg IVPUSH Q6H PRN 11/21/19 13:00 Heparin Sodium 5,000 units SUBCUT Q8H 11/23/19 05:11 CBC WITH AUTO DIFF [HEME] AM COMPREHENSIVE METABOLIC PN,CMP [CHEM] AM MAGNESIUM [CHEM] AM 11/24/19 05:11 CBC WITH AUTO DIFF [HEME] AM COMPREHENSIVE METABOLIC PN,CMP [CHEM] AM MAGNESIUM [CHEM] AM - Plan Plan:: This 49 year old male admitted with sepsis, acute hypoxic respiratory failure and severe CAP 1. Sepsis - Resolved. - Continue to monitor BP. HR stable. Afebrile currently. - BC pending, negative x 1 day - Sputum reveals gram positive cocci, chains. 2. Acute hypoxic Respiratory failure - requiring 1-2 wean as possible - Duonebs PRN - encourage IS, CDB 3. Severe CAP - Continue with Levaquin an Cefepime - Leukocytosis improved and resolved. - Oxygen therapy as needed to keep sats above 92. - CT angio of chest ruled out PE, showed consolidation to left lower lung. Recommended follow up imaging in 6 weeks to insure clearing and no other etiology to lung - influenza swab negative 4. Hyperbilirubinemia - Hx hep C, which was not fully treated per patient reports - Hepatitis panel pending - RUQ US reveals hepatomegaly. - No alcohol use. - Bilirubin improved today with hydration. - Monitor - Recommend follow up with GI for hepatitis C treatment 5. Electrolyte abnormalities: Hypomagnesemia, hypophosphatemia, hypokalemia - Replace with 2 gm IV Mag - replace with Phos PO - replace PO 40 KCL 6. Hx [place], venous insufficiency - Obtain records from [facility]. Reports he is currently not of any medications, Denies hx CHF. 7. Substance abuse - Utox reveals methadone, methamphetamine, and oxycodone. - Reports he used heroin right before coming into the ED. Diaphoresis is likely secondary withdrawal. - Has used Methadone in the past - Counseled on significant health concerns and heroin. - Give number for [facility] in town for substance abuse assistance, her verbalized wanting to quit and wanting help with this. Diet: Regular VTE prophylaxis: heparin CODE Status: Full Code Disposition: 1-2 days
[2019-11-22] MEDS ORDERED: Magnesium Sulfate/Water 2 GM in Premix Bag 1 BAG IV ONE (09:04)
[2019-11-22] MEDS ORDERED: Potassium Chloride 20 MEQ Tab.ER PO ONE (09:04)
--- NOTE | 2019-11-22 13:44 | PCM.SN ---
- Free Text/Narrative Note: Called by nursing for PIV access. Using ultrasound Lt AC was attempted without success. Lt and Rt Deep brachial veins are lying posterior to the artery. Lt and Rt EJ are not visualized with ultrasound. Rt Internal jugular was noted to be very prominent on ultrasound. Rhonda Brunson LEAK DETECTOR notified.
[2019-11-22] MEDS ORDERED: Ondansetron 4 MG Tab.DIS PO PRN (13:45)
[2019-11-23] MEDS: Phosphorus #1 250 MG Tab PO SCH ×2 (00:15→05:42)
[2019-11-23] MEDS ORDERED: Levofloxacin 250 MG Tab PO SCH (01:00)
[2019-11-23] MEDS: Heparin Sodium 5,000 Units/ML Vial SUBCUT SCH (05:43)
[2019-11-23 06:47] LABS: BLOOD UREA NITROGEN,BUN 16 mg/dL (7.0-18.0); CARBON DIOXIDE,CO2 30.1 mmol/L (21.0-32.0); CHLORIDE,CL 100 mmol/L (98-107); GLUCOSE RANDOM 99 mg/dL (74-106); POTASSIUM,K 3.7 mmol/L (3.5-5.1); SODIUM,NA 137 mmol/L (136-148)
--- NOTE | 2019-11-23 09:57 | PCM.DCSUM1 ---
Discharge Summary - Hospital Course Brief History: This 49 year old male with pmh of recent ID per patient, Hep C, tobacco abuse, venous insufficiency PE and recurrent PNA presented to the ED early this morning with complaints of shortness of breath and overall not feeling well. he reports over 1 week ago he started feeling ill, with a productive cough, fevers, shortness of breath and generalized malaise. He reports he felt like it was just a viral illness so he waited to come in. He reports the over whelming weakness and shortness of breath brought him in. He reports brown, green and bloody sputum intermittently. Denies neck pain, sinus pressure or ear pain. No sore throat. No chest pain or palpitations. No abdominal pain, no diarrhea or constipation or black or bloody BMs. He denies urinary concerns and no focal neurological deficits. He reports 1 ppd smoking, no alcohol use and no current recreational drug use, but hx of IV drug use in the past. In the ED significant leukocytosis noted at 30,170, platelet 292. Lactic acid 2.5. Na 132, Cl 95, glucose 132, phos 2.4 Magnesium 1.3, Bilirubin 4.5 AST 65, ALT 27, alk phos 127. TSH 0.58. He was given 1 L NS and along with Cefepime and Levaquin. Lactic acid imrpved after fluid resuscitation. CXR showed LM to LL lobe opacity representing pneumonia. He was noted to be hypoxic on arrival to ED, sating mid 90s on 6 L NC. He will be admitted inpatient for acute hypoxic respiratory failure and severe community acquired pneumonia. Diagnosis: Stroke: No Modified [place] Scale: No Symptoms at All Modified [place] Scale Score: 0 - Discharge Data Discharge Date: 11/23/19 Discharge Disposition: Home, Self-Care 01 Condition: Stable - Referral to Home Health Primary Care Physician: PCP None - Discharge Diagnosis/Problem(s) (1) Sepsis SNOMED Code(s): 01584278 ICD Code: A41.9 - SEPSIS, UNSPECIFIED ORGANISM Status: Acute Qualifiers: Sepsis type: sepsis due to unspecified organism Severe sepsis acute organ dysfunction type: acute respiratory failure Acute respiratory failure type: with hypoxia Severe sepsis shock status: without septic shock (2) Acute respiratory failure with hypoxia SNOMED Code(s): 07826741, 565345560 ICD Code: J96.01 - ACUTE RESPIRATORY FAILURE WITH HYPOXIA Status: Acute (3) Community acquired bacterial pneumonia SNOMED Code(s): 269845547, 283458391 ICD Code: J15.9 - UNSPECIFIED BACTERIAL PNEUMONIA Status: Acute (4) Hepatitis C SNOMED Code(s): 04326717 ICD Code: B19.20 - UNSPECIFIED VIRAL HEPATITIS C WITHOUT HEPATIC COMA Status: Chronic Qualifiers: Viral hepatitis chronicity: chronic Hepatic coma status: without hepatic coma Qualified Code(s): B18.2 - Chronic viral hepatitis C (5) Hx of substance abuse SNOMED Code(s): 830660518 ICD Code: F19.11 - OTHER PSYCHOACTIVE SUBSTANCE ABUSE, IN REMISSION Status : Chronic (6) Hx of myocardial infarction SNOMED Code(s): 415366115 ICD Code: I25.2 - OLD MYOCARDIAL INFARCTION Status: Chronic (7) Hx pulmonary embolism SNOMED Code(s): 005350697 ICD Code: Z86.711 - PERSONAL HISTORY OF PULMONARY EMBOLISM Status: Chronic (8) Tobacco abuse SNOMED Code(s): 703637639 ICD Code: Z72.0 - TOBACCO USE Status: Chronic (9) Venous insufficiency SNOMED Code(s): 31476696 ICD Code: I87.2 - VENOUS INSUFFICIENCY (CHRONIC) (PERIPHERAL) Status: Chronic - Patient Instructions Diet: Usual Diet as Tolerated, Drink 8-10+ Glasses/Day Activity: Cough & Deep Breathe, No Strenuous Activities, Rest and Relax Today Showering/Bathing: May Shower Notify Provider of: Fever, Increased Pain, Swelling and Redness, Drainage, Nausea and/or Vomiting Other/Special Instructions: [facility] information provided for substance abuse counseling and support. Highly encouraged to refrain from further recreational drug use. - Discharge Plan *PRESCRIPTION DRUG MONITORING PROGRAM REVIEWED*: Not Applicable *COPY OF PRESCRIPTION DRUG MONITORING REPORT IN PATIENT SHANNEN: Not Applicable Prescriptions/Med Rec: Ibuprofen 400 mg PO Q6H PRN #1 tablet PRN Reason: Pain levoFLOXacin [Levaquin] 750 mg PO DAILY #5 tab Home Medications: Home Meds Acetaminophen [Tylenol] 650 mg PO Q4H PRN tablet 11/23/19 [Rx] Ibuprofen 400 mg PO Q6H PRN #1 tablet 11/23/19 [Rx] levoFLOXacin [Levaquin] 750 mg PO DAILY #5 tab 11/23/19 [Rx] Oxygen Therapy Mode: Room Air Patient Handouts: Ibuprofen tablets and capsules, Sepsis, Adult, Acute Respiratory Failure, Adult, Finding Treatment for Addiction, Levofloxacin tablets Referrals: Bandar Strong MD [Resident] - 11/25/19 2:30 pm - Discharge Summary/Plan Comment DC Time >30 min.: No Discharge Summary/Plan Comment: Admitting Diagnoses: Sepsis Acute hypoxic respiratory failure Severe CAP HERBERTH Discharge Diagnoses: Severe CAP Sepsis- resolved Acute hypoxic respiratory failure- resolved HERBERTH- resolved Other PMH: Substance abuse- heroin, meth Endocarditis Hepatitis C- untreated Hx PE [place] was admitted secondary to sepsis, acute hypoxic respiratory failure and severe CAP. He was aggressively treated with IVFs, broad spectrum antibiotics and oxygen therapy. CXR showed opacity to L mid and left lower lobe. Due to hypoxia, severity of illness and hx PE, CT angio obtained to rule out PE and evaluate pneumonia further. PE ruled out and consolidation noted in Left lower lobe. Follow up CT recommended to evaluate improvement in 6 weeks. Day 2 he improved significantly, leukocytosis improved from 30,000 to 8,000. BC remained negative, sputum normal respiratory hai. He was weaned from oxygen sating well on room air. Productive cough improved, yellow to clear sputum now. No chest pain or SOB. He is feeling improved today. Transamintitis and hyperbilirubinemia noted on admission, RUQ US shows heptomegaly. Hx of untreated Hep C. Bilirubin improved with hydration, may have been elevated due to sepsis. Encouraged follow up with PCP to make sure improved and recommend getting referral to ID in [place] for further evaluation and treatment of Hep C. During stay, he was quite diaphoretic and mild nausea. He was withdrawing from heroin. He reported his last use was right before being evaluated in the ED. Today, day of discharge less diaphoresis noted. He is feeling improved, eating and drinking well. I will provide information on [facility] in [place] for substance abuse counseling and support. He was grateful for this information. He has some motivation to quit. Past records were obtained, which noted history of endocarditis and severe methamphetamine and heroin addiction. He is stable today and eager for discharge. He is to follow up with PCP as arranged, continue antibiotics, Levaquin 750 for 5 more days. Return to ED or clinic sooner if concerns should arise. - Patient Data Vitals - Most Recent: Last Vital Signs Temp 97.3 F 11/23/19 08:00 Pulse 96 11/23/19 07:39 Resp 16 11/23/19 07:39 BP 132/78 11/23/19 07:39 Pulse Ox 92 L 11/23/19 07:39 Weight - Most Recent: 88.8 kg I&O - Last 24 hours: Intake & Output 11/22/19 11/23/19 11/23/19 22:59 06:59 14:59 Intake Total 500 500 Output Total 250 Balance 250 500 Lab Results - Last 24 hrs: Laboratory Results - last 24 hr 11/23/19 11/23/19 Range/Units 06:15 06:15 WBC 6.44 (4.0-11.0) K/uL RBC 4.17 L (4.50-5.90) M/uL Hgb 11.7 L (13.0-17.0) g/dL Hct 36.5 L (38.0-50.0) % MCV 87.5 (80.0-98.0) fL MCH 28.1 (27.0-32.0) pg MCHC 32.1 (31.0-37.0) g/dL RDW Std Deviation 46.9 (28.0-62.0) fl RDW Coeff of [place] 15 (11.0-15.0) % Plt Count 302 (150-400) K/uL MPV 11.00 (7.40-12.00) fL Neut % (Auto) 72.5 (48.0-80.0) % Lymph % (Auto) 17.4 (16.0-40.0) % [place] % (Auto) 9.6 (0.0-15.0) % Eos % (Auto) 0.3 (0.0-7.0) % Baso % (Auto) 0.2 (0.0-1.5) % Neut # (Auto) 4.7 (1.4-5.7) K/uL Lymph # (Auto) 1.1 (0.6-2.4) K/uL [place] # (Auto) 0.6 (0.0-0.8) K/uL Eos # (Auto) 0.0 (0.0-0.7) K/uL Baso # (Auto) 0.0 (0.0-0.1) K/uL Nucleated RBC % 0.0 /100WBC Nucleated RBCs # 0 K/uL Sodium 137 (136-148) mmol/L Potassium 3.7 (3.5-5.1) mmol/L Chloride 100 (98-107) mmol/L Carbon Dioxide 30.1 (21.0-32.0) mmol/L BUN 16 (7.0-18.0) mg/dL Creatinine 0.8 (0.8-1.3) mg/dL Est Cr Clr Drug Dosing 116.35 mL/min Estimated GFR (MDRD) > 60.0 ml/min Glucose 99 (74-106) mg/dL Calcium 8.2 L (8.5-10.1) mg/dL Magnesium 1.6 L (1.8-2.4) mg/dL Total Bilirubin 1.1 H (0.2-1.0) mg/dL AST 53 H (15-37) IU/L ALT 24 (14-63) IU/L Alkaline Phosphatase 108 (46-116) U/L Total Protein 7.1 (6.4-8.2) g/dL Albumin 1.8 L (3.4-5.0) g/dL Globulin 5.3 H (2.6-4.0) g/dL Albumin/Globulin Ratio 0.3 L (0.9-1.6) CHRISTOPHER Results - Last 24 hrs: Microbiology 11/21/19 10:00 Gram Stain - Preliminary Sputum - Expectorated Sputum Culture - Final Yeast Isolated Normal Respiratory Hai 11/21/19 04:15 Aerobic Blood Culture - Preliminary Blood - Venous - Lab Draw NO GROWTH AFTER 2 DAYS Anaerobic Blood Culture - Final 11/21/19 04:00 Aerobic Blood Culture - Preliminary Blood - Venous NO GROWTH AFTER 2 DAYS Anaerobic Blood Culture - Final Med Orders - Current: Current Medications Acetaminophen (Tylenol) 650 mg PO Q4H PRN PRN Reason: Pain (Mild 1-3)/fever Albuterol/Ipratropium (Duoneb 3.0-0.5 Mg/3 Ml) 3 ml NEB Q4HRRT PRN PRN Reason: sob/wheezing Docusate Sodium (Colace) 100 mg PO BID PRN PRN Reason: Constipation Heparin Sodium (Porcine) (Heparin Sodium) 5,000 units SUBCUT Q8H ANA MARÍA Last Admin: 11/23/19 05:43 Dose: 5,000 units Levofloxacin (Levaquin) 750 mg PO Q24H [facility] Last Admin: 11/23/19 00:15 Dose: 750 mg Magnesium Hydroxide (Milk Of Magnesia) 30 ml PO Q12H PRN PRN Reason: Constipation Ondansetron HCl (Zofran Odt) 4 mg PO Q4H PRN PRN Reason: Nausea/Vomiting Sodium Phosphate (Neutra-Phos) 250 mg PO QID [facility] Last Admin: 11/23/19 05:42 Dose: 250 mg Discontinued Medications Albuterol/Ipratropium (Duoneb 3.0-0.5 Mg/3 Ml) 3 ml NEB ONETIME ONE Stop: 11/21/19 03:40 Last Admin: 11/21/19 04:34 Dose: 3 ml Cefepime HCl 2 gm/ Premix 50 mls @ 100 mls/hr IV ONETIME ONE Stop: 11/21/19 04:49 Last Admin: 11/21/19 04:34 Dose: 100 mls/hr Sodium Chloride (Normal Saline) 1,000 mls @ 999 mls/hr IV .Bolus ONE Stop: 11/21/19 05:27 Last Admin: 11/21/19 04:34 Dose: 999 mls/hr Sodium Chloride (Normal Saline) 1,000 mls @ 999 mls/hr IV .Bolus ONE Stop: 11/21/19 06:05 Last Admin: 11/21/19 05:23 Dose: 999 mls/hr Sodium Chloride (Normal Saline) 1,000 mls @ 999 mls/hr IV .Bolus ONE Stop: 11/21/19 07:10 Last Admin: 11/21/19 06:31 Dose: 999 mls/hr Lactated Ringer's (Ringers, Lactated) 1,000 mls @ 125 mls/hr IV ASDIRECTED [facility] Last Admin: 11/22/19 02:40 Dose: 125 mls/hr Cefepime HCl 2 gm/ Premix 50 mls @ 100 mls/hr IV Q8H [facility] Last Admin: 11/22/19 05:24 Dose: 100 mls/hr Levofloxacin/Dextrose 750 mg/ (Premix) 150 mls @ 100 mls/hr IV Q24H [facility] Last Admin: 11/22/19 03:26 Dose: 100 mls/hr Magnesium Sulfate 4 gm/ Premix 100 mls @ 50 mls/hr IV ONETIME ONE Stop: 11/21/19 10:24 Last Admin: 11/21/19 08:36 Dose: 50 mls/hr Magnesium Sulfate 2 gm/ Premix 50 mls @ 50 mls/hr IV ONETIME ONE Stop: 11/22/19 10:03 Last Admin: 11/22/19 09:43 Dose: 50 mls/hr Iopamidol (Isovue Multipack-370 (76%)) 50 ml IVPUSH ONETIME ONE Stop: 11/21/19 11:45 Last Admin: 11/21/19 11:44 Dose: 50 ml Ketorolac Tromethamine (Toradol) 15 mg IVPUSH Q6H PRN PRN Reason: Pain Stop: 11/26/19 12:57 Last Admin: 11/21/19 13:37 Dose: 15 mg Levofloxacin (Levaquin) 750 mg PO ONETIME ONE Stop: 11/21/19 04:21 Last Admin: 11/21/19 04:34 Dose: 750 mg Morphine Sulfate (Morphine) 2 mg IVPUSH ONETIME ONE Stop: 11/21/19 09:41 Last Admin: 11/21/19 09:51 Dose: 2 mg Ondansetron HCl (Zofran) 4 mg IVPUSH Q4H PRN PRN Reason: Nausea Potassium Chloride (Klor-Con M20) 40 meq PO ONETIME ONE Stop: 11/21/19 12:53 Last Admin: 11/21/19 13:36 Dose: 40 meq Potassium Chloride (Klor-Con M20) 40 meq PO ONETIME ONE Stop: 11/22/19 09:05 Last Admin: 11/22/19 09:45 Dose: 40 meq - Exam Quality Assessment: Denies: Supplemental Oxygen General: Reports: Alert, Oriented, Cooperative, No Acute Distress Lungs: Reports: Normal Respiratory Effort, Crackles (fineto L base, improved. ) GI/Abdominal Exam: Normal Bowel Sounds, Soft, Non-Tender Back Exam: Reports: Normal Inspection, Full Range of Motion Extremities: Normal Inspection, Normal Range of Motion, Non-Tender, Pedal Edema (+1 non pitting, zuhair venous stasis changes to legs) Skin: Reports: Warm, Dry, Intact Neurological: Reports: No New Focal Deficit Psy/Mental Status: Reports: Alert, Normal Affect, Normal Mood
--- NOTE | 2019-11-24 14:39 | ECHO ---
EXAM DATE: 11/21/19 PATIENT'S AGE: 49 The echocardiogram report can be seen in this patient's EMR (Electronic Medical Record) in the REPORTS section. The report has also been scanned into PACs. ROSEMARIE
== END 2019-11-23 11:04 | disposition home or self-care (01) | DRG 871 ==
LOC: MW.ED 03:37 → MW.MS 04:24 → OBSVTOIN 08:09 → MW.MS 08:51
PROVIDERS: ADMIT Student in an Organized Health Care Education/Training Program; ATTEND Student in an Organized Health Care Education/Training Program
DX: A41.9 Sepsis, unspecified organism (principal); J96.01 Acute respiratory failure with hypoxia; J15.9 Unspecified bacterial pneumonia; N17.9 Acute kidney failure, unspecified; R65.20 Severe sepsis without septic shock; F17.210 Nicotine dependence, cigarettes, uncomplicated; B18.2 Chronic viral hepatitis C; R74.0 Nonspecific elevation of levels of transaminase and lactic acid dehydrogenase [LDH]; F19.11 Other psychoactive substance abuse, in remission; E80.6 Other disorders of bilirubin metabolism; E83.42 Hypomagnesemia; E87.6 Hypokalemia; E83.39 Other disorders of phosphorus metabolism; Z99.81 Dependence on supplemental oxygen; I25.2 Old myocardial infarction; Z86.711 Personal history of pulmonary embolism
CPT/HCPCS: 36415; 71045; 71045-26; 71275; 71275-26; 76705; 76705-26; 80053; 80074; 80305-QW; 81001; 82550; 83036; 83605; 83735; 84100; 84443; 85025; 87040; 87070; 87205; 87804; 93306; A9270-GY; J0692; J1644; J1885; J1956; J2270; J3475; J7030; J7120; J7620-GY; Q9967